=== PATIENT | male | born 1995 | race Two or more races ===

== ENCOUNTER 2021-02-05 10:28 | Emergency (ER) | payer SELFPAY ==
[~2021-02-05] VITALS: Ht 154.9 cm; Wt 63.5 kg
[2021-02-05] MEDS ORDERED: PROCHLORPERAZINE EDISYLATE 5 MG/ML 2ML VIAL IV ONE (10:45)
[2021-02-05] MEDS ORDERED: MORPHINE SULFATE 4 MG/ML SYR/VIAL IV ONE (10:45)
[2021-02-05] MEDS ORDERED: PANTOPRAZOLE 40 MG/10 ML VIAL INJ IV ONE (10:45)
[2021-02-05] MEDS ORDERED: SODIUM CHLORIDE 0.9% 500 ML IVB ONE (10:45)
[2021-02-05 11:52] LABS: Basophils # (auto) 0 10 ^3/uL (0-0.2); Basophils % (auto) 0.3 % (0.0-2.0); Eosinophils # (auto) 0.1 10 ^3/uL (0-0.8); Eosinophils % (auto) 0.7 % (0.0-7.0); Hemoglobin 16.8 g/dL (13.5-17.5); Lymphocytes # (auto) 0.9 10 ^3/uL (0.4-5.4); Lymphocytes % (auto) 9.5 % (10.0-50.0); Mean Corpuscular Hemoglobin 29.4 pg (28.0-32.0); Mean Corpuscular Hgb Conc. 34.3 g/dL (32.0-36.0); Mean Corpuscular Volume 85.8 fL (80.0-100.0); Monocytes # (auto) 0.4 10 ^3/uL (0-1.3); Neutrophils % (auto) 85.5 % (37.0-80.0); Nucleated Red Blood Cells % 0.1 %; Red Cell Distribution Width 12.3 % (11.8-14.3); White Blood Cell 9.3 10^3/uL (4.4-10.8)
[2021-02-05 12:14] LABS: Calcium 8.9 mg/dL (8.5-10.1); Potassium 3.7 mmol/L (3.5-5.1)
[2021-02-05 12:18] LABS: BUN/Creatinine Ratio 22.2; Bilirubin, Total 0.5 mg/dL (0.2-1.0); Total Protein 7.4 g/dL (6.4-8.2)
[2021-02-05 15:13] VITALS: BP 136/68
== END 2021-02-05 15:19 | disposition home or self-care (01) ==
LOC: ER 10:28 → EDBD 10:28 → ER 15:19
DX: K29.00 Acute gastritis without bleeding (principal); F12.188 Cannabis abuse with other cannabis-induced disorder; Z87.891 Personal history of nicotine dependence
CPT/HCPCS: 36415; 76705; 80053; 82150; 83690; 85025; 93005; 96361; 96374; 96375; 99285; C9113; J0780; J2270; J7030

== ENCOUNTER 2021-02-10 21:21 | Emergency (ER) | payer MEDICAID, OTHER ==
[~2021-02-10] VITALS: Ht 177.8 cm; Wt 77.1 kg
[2021-02-10 21:27] VITALS: BP 135/79
== END 2021-02-10 21:41 | disposition left against medical advice (07) ==
LOC: EDBD 21:21 → EDUNIT# 21:21 → ER 21:24
DX: R10.13 Epigastric pain (principal); R11.2 Nausea with vomiting, unspecified; Z53.21 Procedure and treatment not carried out due to patient leaving prior to being seen by health care provider

== ENCOUNTER 2021-02-13 06:34 | Emergency (ER) | payer MEDICAID ==
[~2021-02-13] VITALS: Ht 170.2 cm; Wt 74.8 kg
[2021-02-13 06:40] VITALS: BP 153/91
== END 2021-02-13 06:40 | disposition left against medical advice (07) ==
LOC: EDBD 06:34 → ER 06:34
DX: R10.9 Unspecified abdominal pain (principal); R11.0 Nausea; Z53.21 Procedure and treatment not carried out due to patient leaving prior to being seen by health care provider

== ENCOUNTER 2025-02-14 20:51 | Inpatient (IN) | payer MEDICAID ==
[~2025-02-14] VITALS: Ht 172.7 cm; Wt 68.0 kg
[2025-02-14] MEDS: LORazepam 2MG/ML-1ML VIAL ONE (21:24)
[2025-02-14] MEDS: diphenhydrAMINE HCL 50 MG/1 ML VL ONE (21:25)
[2025-02-14 21:45] VITALS: O2SAT 95
[2025-02-14] MEDS: LORazepam 2MG/ML-1ML VIAL IV ONE (21:50)
[2025-02-14] MEDS: diphenhydrAMINE HCL 50 MG/1 ML VL IV ONE (21:51)
[2025-02-14 22:39] LABS: Hematocrit 51.9 % (41.0-53.0); Hemoglobin 17.3 g/dL (13.5-17.5); Mean Corpuscular Hemoglobin 29.2 pg (28.0-32.0); Mean Corpuscular Volume 87.7 fL (80.0-100.0); Nucleated Red Blood Cells % 0.1 %
[2025-02-14 22:53] LABS: Lactic Acid w/Reflex 10.7 mmol/L (0.4-2.0)
[2025-02-14] MEDS: SODIUM CHLORIDE 0.9% 1,000 ML IV ONE ×2 (23:30)
[2025-02-15 00:05] LABS: Alanine Aminotransferase 36 U/L (7-40); Albumin 4.0 g/dL (3.2-4.8); Alkaline Phosphatase 65 U/L (46-116); Anion Gap 10 (5-15); BUN/Creatinine Ratio 14.3 (10.0-20.0); Blood Urea Nitrogen 13 mg/dL (9-23); Carbon Dioxide 22 mmol/L (20-31); Magnesium 2.4 mg/dL (1.6-2.6); Potassium 4.6 mmol/L (3.5-5.1); Sodium 141 mmol/L (136-145); Total Protein 6.4 g/dL (5.7-8.2)
[2025-02-15 00:06] LABS: Bilirubin, Total 0.4 mg/dL (0.2-1.0)
[2025-02-15 00:07] LABS: Calcium 8.6 mg/dL (8.7-10.4); Chloride 109 mmol/L (98-107); Glucose 109 mg/dL (74-106)
[2025-02-15 00:19] LABS: Creatine Kinase IFCC 1638 U/L (46-171)
--- NOTE | 2025-02-15 00:30 | ED.PDOC ---
Back pain HPI HPI Comments ashanti: Generalized body ache. After Haldol was given to him last night at a different hospital for treatment of cannabis induced hyperemesis HPI: Poor Historian. HPI: 30-year-old male who came to ER via EMS for generalized body pains. Patient was seen yesterday at [facility] due to epigastric pain, nausea and vomiting. Patient does use marijuana, so patient was treated as marijauna induced gastritis and patient was given Haldol and Tylenol. Patient then started experiencing generalized body spasms for over the next 12 hours so patient came to this ER. Patient had a rapid response in the lobby of the ER. The resident in the rapid response team ordered Ativan Benadryl prior to my evaluation. Past Medical History: Marijuana abuse Past Surgical History: Denies Social History: Smokes marijuana REVIEW OF SYSTEMS: CONSTITUTIONAL: Denies acute: fever, diaphoresis, chills, HEAD: Denies acute: headache, photophobia Eyes: Denies acute: Double vision, vision loss, eye pain, eye discharge. EARS: Denies acute: tinnitus, hearing loss, ear discharge, ear pain, THROAT: Denies acute: sore throat, swelling, difficulty swallowing , pain with swallowing, change in voice. NECK: Denies acute: neck pain, neck swelling, stiff neck. HEART: Denies acute : chest pain, palpitations, LUNGS: Denies acute: SOB, wheezing, cough, hemoptysis ABDOMEN: Denies acute: abdominal pain, Nausea, Vomiting, diarrhea, melena , hematemesis, hematochezia SKIN: Denies acute: rash, redness, lesions, itchiness. EXTREMITIES: Denies acute: calf pain, numbness, tingling, weakness, denies pain in extremity. Denies acute: Low back pain. Neuro: Denies acute: focal neurological deficit, motor or sensory focal neurological deficit, tremors, seizure like activity, confusion, dizziness, change in mental status, loss of bowel or bladder function, cauda equina like symptoms. : Denies acute: dysuria, hematuria, flank pain, increase in urinary frequency. PSYCH: Denies acute: hallucination, suicidal ideation, homicidal ideation. PHYSICAL EXAM: General: ---[id number]-----acute distress, awake and alert. Head: normocephalic, atraumatic. No raccoon's eyes, no william sign. Neck: supple, trachea is midline, no swelling. Throat: Normal phonation. Eyes:, no erythema, no purulent discharge, no proptosis, no icterus. Heart: regular rate, regular rhythm, no significant murmur appreciated. Lungs: no apparent respiratory distress, Able to speak in full sentences. No wheezing, no rhonchi, no crackles. No stridors Clear to auscultation bilaterally. Abdomen: non tender to palpation, non distended, soft, no guarding, no rebound, + bowel sounds. Neuro: Awake, Alert, oriented to name, self, situation, follows commands GCS=15. Speech is normal. Skin: no petechia, no purpura, no cyanosis, non-pale, not jaundice. Lower extremities: --no - Pitting edema no deformity, no focal swelling, no calf TTP. Makes eye contact. moves all four extremities. Face: no apparent facial droop. No nuchal rigidity, Kernig's sign, Brudzinski's sign, no meningeal signs. ED COURSE: DISCLAIMER: This medical document was created using an electronic medical record system with voice recognition software and computerized dictation system. Although this document has been carefully reviewed, there might still be some phonetic and typographical errors. Occasional wrong-word or "sound-alike" substitutions may have occurred due to the inherent limitations of voice recognition software. These areas are purely typographical due to imperfections of the software programs and do not reflect any compromise in the patient's medical care. Please read the chart carefully and recognize, using context, where these substitutions have occurred. Chief Complaint: Body Pain Time Seen by MD: 00:19 Primary Care Provider: None Reviewed Notes: Nurses Notes, Allergies Allergies: Coded Allergies: NO KNOWN ALLERGIES (Unverified , 02/05/21) Information Source: Patient Mode of Arrival: EMS Past Medical History PAST MEDICAL HISTORY: Denies Surgical History: Denies all surgeries Social History Smoker: Quit Greater Than 1 Year Drugs: Marijuana Lives In: Home Was a procedure done? Was a procedure done?: No Back Pain Differential Dx Differential Diagnosis: Musculoskeletal Pain X-Ray, Labs, Meds, VS Vital Signs Date Time Temp Pulse Resp B/P (MAP) Pulse Ox O2 Delivery O2 Flow Rate FiO2 02/14/25 20:52 99.0 95 24 154/79 100 99.0 Lab Test 02/14/25 23:15 02/14/25 22:17 02/14/25 21:20 Range/Units Sodium Level 141 136-145 mmol/L Potassium Level 4.6 3.5-5.1 mmol/L Chloride Level 109 H 98-107 mmol/L Carbon Dioxide Level 22 20-31 mmol/L Anion Gap 10 5-15 Blood Urea Nitrogen 13 9-23 mg/dL Creatinine 0.91 0.700-1.30 mg/dL Glomerular Filtration Rate Calc 115 >90 mL/min BUN/Creatinine Ratio 14.3 10.0-20.0 Serum Glucose 109 H 74-106 mg/dL Lactic Acid Level 1.0 10.7 *H 0.4-2.0 mmol/L Calcium Level 8.6 L 8.7-10.4 mg/dL Magnesium Level 2.4 1.6-2.6 mg/dL Total Bilirubin 0.4 0.2-1.0 mg/dL Aspartate Amino Transferase (AST) 43 H 13-40 U/L Alanine Aminotransferase (ALT) 36 7-40 U/L Alkaline Phosphatase 65 46-116 U/L Creatine Kinase 1638 H 46-171 U/L Total Protein 6.4 5.7-8.2 g/dL Albumin 4.0 3.2-4.8 g/dL Urine Opiates Screen Neg NEGATIVE Urine Fentanyl Screen Neg NEGATIVE Urine Barbiturates Screen Neg NEGATIVE Urine Phencyclidine Screen Neg NEGATIVE Urine Amphetamines Screen Neg NEGATIVE Urine Benzodiazepines Screen Neg NEGATIVE Urine Cocaine Screen Neg NEGATIVE Urine Cannabinoids Screen Pos NEGATIVE White Blood Count 13.2 H 4.4-10.8 10^3/uL Red Blood Count 5.92 H 4.5-5.90 10^6/uL Hemoglobin 17.3 13.5-17.5 g/dL Hematocrit 51.9 41.0-53.0 % Mean Corpuscular Volume 87.7 80.0-100.0 fL Mean Corpuscular Hemoglobin 29.2 28.0-32.0 pg Mean Corpuscular Hemoglobin Concent 33.3 32.0-36.0 g/dL Red Cell Distribution Width 14.2 11.8-14.3 % Platelet Count 253 140-450 10^3/uL Mean Platelet Volume 9.7 6.9-10.8 fL Neutrophils (%) (Auto) 83.0 H 37.0-80.0 % Lymphocytes (%) (Auto) 12.1 10.0-50.0 % Monocytes (%) (Auto) 4.5 0.0-12.0 % Eosinophils (%) (Auto) 0.1 0.0-7.0 % Basophils (%) (Auto) 0.3 0.0-2.0 % Neutrophils # (Auto) 11.0 H 1.6-8.6 10 ^3/uL Lymphocytes # (Auto) 1.6 0.4-5.4 10 ^3/uL Monocytes # (Auto) 0.6 0-1.3 10 ^3/uL Eosinophils # (Auto) 0 0-0.8 10 ^3/uL Basophils # (Auto) 0 0-0.2 10 ^3/uL Nucleated Red Blood Cells 0.1 % Current Medications Medications (Trade) Dose Ordered Sig/Linda Route Start Time Stop Time Status Last Admin Sodium Chloride 1,000 ml @ 1,000 mls/hr Q1H ONCE IV 02/14/25 23:30 02/15/25 00:29 DC 02/14/25 23:30 Sodium Chloride 1,000 ml @ 1,000 mls/hr Q1H ONCE IV 02/14/25 23:30 02/15/25 00:29 DC 02/14/25 23:30 [place] [id number] Ph: [phone] DIAGNOSTIC IMAGING Diagnostic Imaging Report : [id number] Signed PATIENT: MIMI COX ACCT: [id number] UNIT: [id number] : 1995 LOC: OVERFLOW ROOM / BED: [address] [place] [address] / A AGE / SEX: 30 / M ADM STATUS: ADM IN SERVICE 6 ORDERING PHYSICIAN: NAVNEET CALDWELL RESIDENT PROCEDURE(s): CXR1 - CHEST XRAY 1 VIEW REASON: sob ORDER NUMBER(s): [id number], ACCESSION NUMBER(s): [id number] CHEST RADIOGRAPH Indication: sob Technique: 1 view Comparison: None available FINDINGS: Lines and Tubes: External leads. Lungs/Pleura: Interstitial opacities appear within normal limits. No focal consolidation, pleural effusion or pneumothorax. Cardiomediastinum: Size within normal limits for technique. Other: No acute osseous abnormality. IMPRESSION: Prominent heart size and interstitial opacities likely within normal limits for technique. Mild heart failure or atypical infection could have a similar appearance. ATED BY: LOVE BALDWIN MD DICTATED DATE/TIME: 02/15/25238 SIGNED BY: LOVE BALDWIN MD SIGNED DATE/TIME: 02/15/25238 CC: Time of 1ST Reevaluation: 00:29 Reevaluation 1ST: Unchanged Patient Education/Counseling: Diagnosis, Treatment Family Education/Counseling: No Family Present SEPSIS Sepsis Screen Date sepsis recognized/suspect: Feb 14, 2025 Time Sepsis recognized/suspect: 2051 Recent Procedure: No On Antibiotic Therapy: No Respiratory Rate >20: No Heart Rate >90: No Temp<36 C (96.8 F) or >38.3 C: No SBP <90 or MAP <65 mmHG: No New Acute Mental Status Change: No Is the patient on CPAP, BIPAP,: No Physician Orders Chicken Boner (02/14/25 ) Vital Signs Date Time Temp Pulse Resp B/P (MAP) Pulse Ox O2 Delivery O2 Flow Rate FiO2 02/14/25 20:52 99.0 95 24 154/79 100 99.0 Laboratory Tests Test 02/14/25 21:20 02/14/25 23:15 Lactic Acid Level 10.7 mmol/L (0.4-2.0) *H 1.0 mmol/L (0.4-2.0) White Blood Count 13.2 10^3/uL (4.4-10.8) H Medications Medications Dose Ordered Sig/Linda Route Start Time Stop Time Status Last Admin Dose Admin Diphenhydramine HCl 50 mg STK-MED ONCE .ROUTE 02/14/25 21:18 02/14/25 21:17 DC 02/14/25 21:25 Lorazepam 2 mg STK-MED ONCE .ROUTE 02/14/25 21:17 02/14/25 21:17 DC 02/14/25 21:24 Sodium Chloride 1,000 ml @ 1,000 mls/hr Q1H ONCE IV 02/14/25 23:30 02/15/25 00:29 DC 02/14/25 23:30 Sodium Chloride 1,000 ml @ 1,000 mls/hr Q1H ONCE IV 02/14/25 23:30 02/15/25 00:29 DC 02/14/25 23:30 Departure 1 Departure Time of Disposition: 00:31 Impression: Primary Impression: Rhabdomyolysis Additional Impressions: Generalized body aches Elevated lactic acid level Disposition: ADMITTED INPATIENT Admit to: [facility] Condition: Guarded Discharged With: Self Critical Care Note Critical Care Time?: No I personally scribed for SURY JOHN DO ([email or web address]) on 02/15/25 at 00:30. Electronically submitted by Jack Corona ([employer]). I personally scribed for SURY JOHN DO ([email or web address]) on 02/15/25 at 00:36. Electronically submitted by Jack Corona ([employer]). I personally scribed for SURY JOHN DO ([email or web address]) on 02/15/25 at 04:34. Electronically submitted by Jack Corona ([employer]). SURY JOHN DO Feb 15, 2025 00:30
[2025-02-15] MEDS: ENOXAPARIN SOD 40 MG/0.4 ML SYRINGE SC SCH (02:15)
[2025-02-15] MEDS ORDERED: ONDANSETRON HCL 4 MG/2 ML VIAL IV PRN (02:15)
[2025-02-15 02:28] LABS: Cannabinoid Screen, Urine Pos (NEGATIVE)
[2025-02-15] MEDS: SODIUM CHLORIDE 0.9% 1,000 ML IV ONE (02:28)
--- NOTE | 2025-02-15 02:34 | DVHHPRES ---
History of Present Illness Resident Creating Document: NAVNEET CALDWELL RESIDENT History of Present Illness 30-year-old male with no significant past medical or surgical history came to the ED today with body spasms, flushing of the face and diaphoresis. Patient reports that he was at [facility] yesterday for epigastric pain, nausea and a few episodes of watery, nonbloody emesis and was treated with Haldol and Tylenol. He reports leaving the hospital but but after an hour began to have generalized body spasms, entire body muscular pain, flushing of the face, diaphoresis lasting 2-3 minutes, occurring every 10 minutes, making him unable to drive properly and to keep side tracking his car. Because of worsening of symptoms, he decided to come to the ED at this facility. On initial assessment/ rapid response patient had a tonic body spasm, observed by me lasting 2-3 minutes, facial flushing, diaphoresis, with no loss of consciousness, tongue biting or urinary incontinence for which 2g Ativan and 30 mL Benadryl was begun which helped the patient. Patient has had 3-4 more episodes of the same and during admission had 1 more episode. Patient denies any nausea, vomiting or abdominal pain during assessment. Vitals were stable on admission, lactic acid was elevated at 10.7 which has decreased to 1.0 after 2 boluses of 1 L NS 0.9% and CK is 1638. We are admitting the patient for further workup and management. PMH/PSH: none Family history: Reviewed, noncontributory to the management of this case Social history: Patient denies smoking or any alcohol abuse but admits to smoking marijuana daily PCP: Dr. Maxwell at [facility] Allergies: None other than haloperidol Code status: Full code Review of Systems Constitutional: No: Fever, Chills, Sweats, Weakness, Malaise, Other Eyes: No: Pain, Vision change, Conjunctivae inflammation, Eyelid inflammation, Other, Redness ENT: No: Ear pain, Ear discharge, Nose pain, Nose discharge, Nose congestion, Mouth pain, Mouth swelling, Throat pain, Throat swelling, Other Respiratory: No: Cough, Dry, Shortness of breath, SOB with excertion, Wheezing, Hemoptysis, Pleuritic Pain, Sputum, Wheezing, Other Cardiovascular: No: Chest Pain, Palpitations, Orthopnea, Paroxysmal Noc. Dyspnea, Edema, Lt Headedness, Other Gastrointestinal: Nausea, Vomiting; No: Abdominal Pain, Diarrhea, Constipation, Melena, Hematochezia, Other Genitourinary: No Dysuria, No Frequency, No Incontinence, No Hematuria, No Retention, No Other Musculoskeletal: No: other, neck pain, shoulder pain, arm pain, back pain, hand pain, leg pain, foot pain Skin: No: Rash, Lesions, Jaundice, Bruising, Other Neurological: Other (Body spasms); No: Weakness, Numbness, Incoordination, Change in speech, Confusion, Seizures Allergies: Coded Allergies: NO KNOWN ALLERGIES (Unverified , 02/05/21) Medications Current Medications Medications Dose Ordered Sig/Linda Route Start Time Stop Time Status Last Admin Dose Admin Ondansetron HCl 4 mg Q4HP PRN IV 02/15/25 02:15 Enoxaparin Sodium 40 mg DAILY SC 02/15/25 02:15 Lorazepam 1 mg Q2HP PRN IV 02/15/25 06:00 Pantoprazole Sodium 40 mg DAILY IV 02/15/25 10:00 Exam Vital Signs Vital Signs Date Time Temp Pulse Resp B/P (MAP) Pulse Ox O2 Delivery O2 Flow Rate FiO2 02/14/25 20:52 99.0 95 24 154/79 100 99.0 Exam Pt is lying on bed General Appearance: Alert, Oriented X3, Cooperative, distressed, flushing of the face, diaphoretic, tonic spasm of the entire body lasting 2-3 minutes occurring every 1/2 hour HEENT: Atraumatic, Mucous membranes moist/pink Respiratory: Clear to auscultation, Normal air movement, No added sounds Cardiovascular: Regular rate, Normal S1, Normal S2, No murmurs Abdominal: Active bowel sounds, Soft, no distention, no abdominal tenderness on palpation Extremities: No edema, Normal pulses, No tenderness/swelling Skin: No Significant rash, except past surgical scars Neuro: Normal speech, sensorimotor deficits none Psych/Mental Status: Mental status NL, anxious appearing Labs/Xrays Labs Test 02/14/25 23:15 02/14/25 22:17 02/14/25 21:20 Range/Units Sodium Level 141 136-145 mmol/L Potassium Level 4.6 3.5-5.1 mmol/L Chloride Level 109 H 98-107 mmol/L Carbon Dioxide Level 22 20-31 mmol/L Anion Gap 10 5-15 Blood Urea Nitrogen 13 9-23 mg/dL Creatinine 0.91 0.700-1.30 mg/dL Glomerular Filtration Rate Calc 115 >90 mL/min BUN/Creatinine Ratio 14.3 10.0-20.0 Serum Glucose 109 H 74-106 mg/dL Lactic Acid Level 1.0 0.4-2.0 mmol/L Calcium Level 8.6 L 8.7-10.4 mg/dL Magnesium Level 2.4 1.6-2.6 mg/dL Total Bilirubin 0.4 0.2-1.0 mg/dL Aspartate Amino Transferase (AST) 43 H 13-40 U/L Alanine Aminotransferase (ALT) 36 7-40 U/L Alkaline Phosphatase 65 46-116 U/L Creatine Kinase 1638 H 46-171 U/L Total Protein 6.4 5.7-8.2 g/dL Albumin 4.0 3.2-4.8 g/dL White Blood Count 13.2 H 4.4-10.8 10^3/uL Red Blood Count 5.92 H 4.5-5.90 10^6/uL Hemoglobin 17.3 13.5-17.5 g/dL Hematocrit 51.9 41.0-53.0 % Mean Corpuscular Volume 87.7 80.0-100.0 fL Mean Corpuscular Hemoglobin 29.2 28.0-32.0 pg Mean Corpuscular Hemoglobin Concent 33.3 32.0-36.0 g/dL Red Cell Distribution Width 14.2 11.8-14.3 % Platelet Count 253 140-450 10^3/uL Mean Platelet Volume 9.7 6.9-10.8 fL Neutrophils (%) (Auto) 83.0 H 37.0-80.0 % Lymphocytes (%) (Auto) 12.1 10.0-50.0 % Monocytes (%) (Auto) 4.5 0.0-12.0 % Eosinophils (%) (Auto) 0.1 0.0-7.0 % Basophils (%) (Auto) 0.3 0.0-2.0 % Neutrophils # (Auto) 11.0 H 1.6-8.6 10 ^3/uL Lymphocytes # (Auto) 1.6 0.4-5.4 10 ^3/uL Monocytes # (Auto) 0.6 0-1.3 10 ^3/uL Eosinophils # (Auto) 0 0-0.8 10 ^3/uL Basophils # (Auto) 0 0-0.2 10 ^3/uL Nucleated Red Blood Cells 0.1 % SEPSIS Sepsis Screen Date sepsis recognized/suspect: Feb 14, 2025 Time Sepsis recognized/suspect: 2051 Recent Procedure: No On Antibiotic Therapy: No Respiratory Rate >20: No Heart Rate >90: No Temp<36 C (96.8 F) or >38.3 C: No SBP <90 or MAP <65 mmHG: No New Acute Mental Status Change: No Is the patient on CPAP, BIPAP,: No Physician Orders Production Operator (02/14/25 ) Drug Screen (02/14/25 22:17) Admit (02/15/25 02:07) Code Status (02/15/25 02:07) Ondansetron Hcl (Zofran) (02/15/25 02:15) Complete Blood Count (02/15/25 04:00) Comprehensive Metabolic Panel (02/15/25 04:00) Npo (Nothing By Mouth) Diet (02/15/25 Breakfast) Condition: Unstable (02/15/25 02:07) Enoxaparin Sodium (Lovenox) (02/15/25 02:15) Electrocardigram (02/15/25 02:07) Urinalysis (02/15/25 02:07) Sodium Chloride 0.9% (02/15/25 02:15) Lorazepam 2mg/Ml Inj (Ativan Inj) (02/15/25 06:00) Creatine Kinase (02/15/25 04:00) Chest Xray 1 View (02/15/25 02:07) Pantoprazole (Protonix) (02/15/25 10:00) B-Type Natriuretic Peptide (02/15/25 04:00) Vital Signs Date Time Temp Pulse Resp B/P (MAP) Pulse Ox O2 Delivery O2 Flow Rate FiO2 02/14/25 20:52 99.0 95 24 154/79 100 99.0 Laboratory Tests Test 02/14/25 21:20 02/14/25 23:15 Lactic Acid Level 10.7 mmol/L (0.4-2.0) *H 1.0 mmol/L (0.4-2.0) White Blood Count 13.2 10^3/uL (4.4-10.8) H Medications Medications Dose Ordered Sig/Linda Route Start Time Stop Time Status Last Admin Dose Admin Diphenhydramine HCl 50 mg STK-MED ONCE .ROUTE 02/14/25 21:18 02/14/25 21:17 DC 02/14/25 21:25 50 MG Lorazepam 2 mg STK-MED ONCE .ROUTE 02/14/25 21:17 02/14/25 21:17 DC 02/14/25 21:24 2 MG Sodium Chloride 1,000 ml @ 1,000 mls/hr Q1H ONCE IV 02/14/25 23:30 02/15/25 00:29 DC 02/14/25 23:30 1,000 MLS/HR Sodium Chloride 1,000 ml @ 1,000 mls/hr Q1H ONCE IV 02/14/25 23:30 02/15/25 00:29 DC 02/14/25 23:30 1,000 MLS/HR Sodium Chloride 1,000 ml @ 1,000 mls/hr Q1H ONCE IV 02/15/25 02:15 02/15/25 03:14 02/15/25 02:28 1,000 MLS/HR Assessment/Plan Assessment/Plan # Rhabdomyolysis # Possible allergic reaction to haloperidol # Lactic acidosis - creatinine kinase 1638 - LA 10.7> 1.0 - UA - IV fluids NS 0.9% Bolus and maintenance fluid - Ativan 2 g stat ( given twice, gap of 6 hours) - Ativan 1 g Q2 PRN - Benadryl 50 mg IV once - EKG - tele monitor - BNP #Sepsis due to likely pneumonia #Possible Gram-positive/negative pneumonia - IV ceftriaxone 1g daily - blood culture - respiratory culture - chest x-ray: Prominent heart size and interstitial opacities likely within normal limits for technique. Mild heart failure or atypical infection could have a similar appearance - IV fluids NS 0.9% #Substance abuse ( marijuana) #Cyclic vomiting syndrome due to above - NPO - UDS postive for cannabinoids - Zofran 4 mg IV q.4 PRN - pantoprazole 40 mg IV daily - patient counseled regarding complete cessation of marijuana, the side effects it has in the harms it causes to his body over 8 minute GI prophylaxis: Pantoprazole 40 mg IV daily DVT prophylaxis: Lovenox 40 mg subcutaneous daily Diet: NPO Goals of care discussed with the patient for more than 27 minutes: Full code status Case discussed with Dr. Coughlin, patient and nurse. Plan discussed with: Patient, Other (rn) My Orders Orders - NAVNEET CALDWELL RESIDENT Procedure Category Date Status Time Admit ADMIT 02/15/25 Transmitted 02:07 Code Status CODE 02/15/25 Transmitted 02:07 Ondansetron Hcl PHA 02/15/25 In Process (Zofran) 02:15 Complete Blood Count LAB 02/15/25 Logged 04:00 Comprehensive LAB 02/15/25 Logged Metabolic Panel 04:00 Npo (Nothing By DIET 02/15/25 Transmitted Mouth) Diet Breakfast Condition: Unstable RADHA 02/15/25 In Process 02:07 Enoxaparin Sodium PHA 02/15/25 In Process (Lovenox) 02:15 Electrocardigram EKG 02/15/25 Logged 02:07 Urinalysis LAB 02/15/25 Logged 02:07 Sodium Chloride 0.9% PHA 02/15/25 In Process 02:15 Lorazepam 2mg/Ml Inj PHA 02/15/25 In Process (Ativan Inj) 06:00 Creatine Kinase LAB 02/15/25 Logged 04:00 Chest Xray 1 View XY 02/15/25 Taken 02:07 Pantoprazole PHA 02/15/25 In Process (Protonix) 10:00 B-Type Natriuretic LAB 02/15/25 Logged Peptide 04:00 Date of Service: Feb 15, 2025 Billing Provider: LELO COUGHLIN MD Common Visit Codes: 48630-[id number] INP/OBS CARE (HIGH) Secondary Visit Codes: 35379-[id number] CARE PLAN 30 MINUTES NAVNEET CALDWELL RESIDENT Feb 15, 2025 02:34 NARCISO HARPER RESIDENT Feb 15, 2025 06:48
--- NOTE | 2025-02-15 02:41 | DVH ---
CHEST RADIOGRAPH Indication: sob Technique: 1 view Comparison: None available FINDINGS: Lines and Tubes: External leads. Lungs/Pleura: Interstitial opacities appear within normal limits. No focal consolidation, pleural effusion or pneumothorax. Cardiomediastinum: Size within normal limits for technique. Other: No acute osseous abnormality. IMPRESSION: Prominent heart size and interstitial opacities likely within normal limits for technique. Mild heart failure or atypical infection could have a similar appearance.
[2025-02-15 02:50] LABS: Amphetamine Screen, Urine Neg (NEGATIVE); Barbiturate Scree,Urine Neg (NEGATIVE); Opiate Scree,Urine Neg (NEGATIVE); Phencyclidine Screen, Urine Neg (NEGATIVE)
[2025-02-15 02:51] LABS: Benzodiazephine Screen, Urine Neg (NEGATIVE); Cocaine Screen, Urine Neg (NEGATIVE)
[2025-02-15] MEDS: SODIUM CHLORIDE 0.9% 1,000 ML IV SCH (05:24)
[2025-02-15] MEDS: LORazepam 2MG/ML-1ML VIAL IV PRN (05:41)
[2025-02-15 06:52] LABS: Hematocrit 44.7 % (41.0-53.0); Hemoglobin 14.9 g/dL (13.5-17.5); Mean Corpuscular Hemoglobin 29.2 pg (28.0-32.0); Mean Corpuscular Volume 87.4 fL (80.0-100.0); Nucleated Red Blood Cells % 0.1 %
[2025-02-15 07:10] LABS: Alanine Aminotransferase 38 U/L (7-40); Albumin 4.0 g/dL (3.2-4.8); Alkaline Phosphatase 62 U/L (46-116); Anion Gap 10 (5-15); BUN/Creatinine Ratio 15.1 (10.0-20.0); Blood Urea Nitrogen 14 mg/dL (9-23); Carbon Dioxide 24 mmol/L (20-31); Glucose 93 mg/dL (74-106); Potassium 4.2 mmol/L (3.5-5.1); Sodium 144 mmol/L (136-145); Total Protein 6.1 g/dL (5.7-8.2)
[2025-02-15 07:11] LABS: Bilirubin, Total 0.5 mg/dL (0.2-1.0)
[2025-02-15 07:28] LABS: Calcium 8.3 mg/dL (8.7-10.4); Chloride 110 mmol/L (98-107)
[2025-02-15 08:00] VITALS: BP 127/79; PULSE 79; RESP 16; TEMP 98; O2SAT 95
[2025-02-15 09:53] LABS: Urine Protein, UAD Negative (Negative)
[2025-02-15] MEDS ORDERED: PANTOPRAZOLE 40 MG/10 ML VIAL INJ IV SCH (10:00)
== END 2025-02-15 09:53 | disposition left against medical advice (07) | DRG 720 ==
LOC: EDBD 20:51 → ER 20:51 → OVERFLOW 02-15 02:07
PROVIDERS: ATTEND Emergency Medicine
DX: A41.50 Gram-negative sepsis, unspecified (principal); M62.82 Rhabdomyolysis; J15.69 Pneumonia due to other Gram-negative bacteria; E87.20 Acidosis, unspecified; J15.9 Unspecified bacterial pneumonia; F12.10 Cannabis abuse, uncomplicated; T43.4X5A Adverse effect of butyrophenone and thiothixene neuroleptics, initial encounter; Z53.29 Procedure and treatment not carried out because of patient's decision for other reasons; Z87.891 Personal history of nicotine dependence; Y92.89 Other specified places as the place of occurrence of the external cause
CPT/HCPCS: 36415; 71045; 80053; 80307; 81001; 82550; 83605; 83735; 83880; 85025; 87040; 96361; 96372; G0378

== ENCOUNTER 2025-02-22 05:15 | Emergency (ER) | payer MEDICAID ==
[~2025-02-22] VITALS: Ht 170.2 cm; Wt 91.0 kg
--- NOTE | 2025-02-22 06:44 | ED.PDOC ---
GI ASSESSMENT HPI Comments This is a 30 year-old male who presents to the ED with a chief complaint of N/V and abdominal pain as of X2 days ago. Patient states symptoms are constant, with no known relieving factors. Patient reports having a scope done in January 2024 where "stomach inflammation" was identified. Patient additionally states he was seen by a doctor weeks ago for the same issue, prescribed Zofran, with minimal to no relief. Patient reports this being an ongoing issue for several years, with doctors unable to identify the cause of his symptoms. There are no further complaints or modifying factors at this time. Patient otherwise denies further associated symptoms of dizziness, weakness, constipation, diarrhea, fever, or hematemesis. Chief Complaint: Nausea/Vomiting Time Seen by MD: 06:37 Primary Care Provider: None Reviewed Notes: Medications, Allergies Allergies: Coded Allergies: NO KNOWN ALLERGIES (Unverified , 02/05/21) Information Source: Patient Mode of Arrival: EMS Timing: Days Duration: Since onset Severity: Moderate Associated sign and symptoms: Nausea, Vomiting, Abdominal Pain Past Medical History PAST MEDICAL HISTORY: Denies Surgical History: Denies all surgeries Social History Smoker: Quit Greater Than 1 Year Drugs: Marijuana Lives In: Home Constitutional: denies: chills, diaphoresis, fatigue, fever, malaise, sweats, weakness, others EENTM: denies: blurred vision, double vision, ear bleeding, ear discharge, ear drainage, ear pain, ear ringing, eye pain, eye redness, hearing loss, mouth pain, mouth swelling, nasal discharge, nose bleeding, nose congestion, nose pain, photophobia, tearing, throat pain, throat swelling, voice changes, others Respiratory: denies: cough, hemoptysis, orthopnea, SOB at rest, shortness of breath, SOB with excertion, stridor, wheezing, others Cardiovascular: denies: chest pain, dizzy spells, diaphoresis, Dyspnea on exertion, edema, irregular heart beat, left arm pain, lightheadedness, palpitations, PND, syncope, others Gastrointestinal: reports: abdominal pain, nausea, vomiting; denies: abdomen distended, blood streaked bowels, constipated, diarrhea, dysphagia, difficulty swallowing, hematemesis, melena, poor appetite, poor fluid intake, rectal bleeding, rectal pain, others Genitourinary: denies: burning, dysuria, flank pain, frequency, hematuria, incontinence, penile discharge, penile sore, pain, testicle pain, testicle swelling, urgency, others Neurological: denies: dizziness, fainting, headache, left sided numbness, left sided weakness, numbness, paresthesia, pre-existing deficit, right sided numbness, right sided weakness, seizure, speech problems, tingling, tremors, weakness, others Musculoskeletal: denies: back pain, gout, joint pain, joint swelling, muscle pain, muscle stiffness, neck pain, others Integumetry: denies: bruises, change in color, change in hair/nails, dryness, laceration, lesions, lumps, rash, wounds, others Allergic/Immunocompromised: denies: Difficulty Healing, Frequent Infections, Hives, Itching, others Hematologic/Lymphatic: denies: anemia, blood clots, easy bleeding, easy bruising, swollen glands, others Endocrine: denies: excessive hunger, excessive sweating, excessive thirst, excessive urination, flushing, intolerance to cold, intolerance to heat, unexplained weight gain, unexplained weight loss, others Psychiatric: denies: anxiety, bipolar disorder, depression, hopeless, panic disorder, schizophrenia, sleepless, suicidal, others All Other Systems: Reviewed and Negative Physical Exam General Appearance: No Apparent Distress HEENT: Pharynx Normal Neck: Normal Inspection Respiratory: No Respiratory Distress Cardiovascular: No Edema Breast Exam: Deferred Gastrointestinal: Non Tender Genitalia: Deferred Pelvic: Deferred Rectal: Deferred Extremities: No pedal edema Neurologic: No Motor Deficits Cerebellar Function: NOT DONE Reflexes: NOT DONE Skin: Normal Color Lymphatic: NOT DONE Was a procedure done? Was a procedure done?: No GI differential Dx Differential Diagnosis: Constipation, Gastritis/PUD, Gastroenteritis, Inflammatory BD, Dehydration, Food Poisoning, Bacterial, Parasitic, Viral X-Ray, Labs, Meds, VS Vital Signs Date Time Temp Pulse Resp B/P (MAP) Pulse Ox O2 Delivery O2 Flow Rate FiO2 02/22/25 08:45 98.5 87 16 119/75 (90) 98 98.5 02/22/25 06:33 98.7 83 22 131/75 (93) 97 98.7 02/22/25 05:15 98.9 106 24 168/110 97 98.9 Lab Test 02/22/25 07:49 02/22/25 07:44 Range/Units White Blood Count 10.3 4.4-10.8 10^3/uL Red Blood Count 5.45 4.5-5.90 10^6/uL Hemoglobin 16.0 13.5-17.5 g/dL Hematocrit 46.6 41.0-53.0 % Mean Corpuscular Volume 85.5 80.0-100.0 fL Mean Corpuscular Hemoglobin 29.4 28.0-32.0 pg Mean Corpuscular Hemoglobin Concent 34.3 32.0-36.0 g/dL Red Cell Distribution Width 13.8 11.8-14.3 % Platelet Count 218 140-450 10^3/uL Mean Platelet Volume 9.0 6.9-10.8 fL Neutrophils (%) (Auto) 84.6 H 37.0-80.0 % Lymphocytes (%) (Auto) 10.8 10.0-50.0 % Monocytes (%) (Auto) 4.2 0.0-12.0 % Eosinophils (%) (Auto) 0.1 0.0-7.0 % Basophils (%) (Auto) 0.3 0.0-2.0 % Neutrophils # (Auto) 8.7 H 1.6-8.6 10 ^3/uL Lymphocytes # (Auto) 1.1 0.4-5.4 10 ^3/uL Monocytes # (Auto) 0.4 0-1.3 10 ^3/uL Eosinophils # (Auto) 0 0-0.8 10 ^3/uL Basophils # (Auto) 0 0-0.2 10 ^3/uL Nucleated Red Blood Cells 0.2 % Sodium Level 143 136-145 mmol/L Potassium Level 3.4 L 3.5-5.1 mmol/L Chloride Level 109 H 98-107 mmol/L Carbon Dioxide Level 22 20-31 mmol/L Anion Gap 12 5-15 Blood Urea Nitrogen 18 9-23 mg/dL Creatinine 1.00 0.700-1.30 mg/dL Glomerular Filtration Rate Calc 103 >90 mL/min BUN/Creatinine Ratio 18.0 10.0-20.0 Serum Glucose 104 74-106 mg/dL Calcium Level 9.5 8.7-10.4 mg/dL Total Bilirubin 0.9 0.2-1.0 mg/dL Aspartate Amino Transferase (AST) 24 13-40 U/L Alanine Aminotransferase (ALT) 32 7-40 U/L Alkaline Phosphatase 65 46-116 U/L Total Protein 7.5 5.7-8.2 g/dL Albumin 4.6 3.2-4.8 g/dL Lipase 30 12-53 U/L Urine Color Yellow Yellow Urine Clarity Clear Clear Urine pH 6.0 5.0-9.0 Urine Specific Stokes 1.038 H 1.001-1.035 Urine Protein 1+ H Negative Urine Ketones 1+ H Negative Urine Blood Negative Negative /uL Urine Nitrite Negative Negative Urine Bilirubin Negative Negative Urine Urobilinogen Normal Negative mg/dL Urine Leukocyte Esterase Trace Negative /uL Urine RBC 2 0 - 3 /hpf Urine Microscopic WBC 4 H 0-3 /HPF Urine Squamous Epithelial Cells Few <5 /hpf Urine Bacteria None seen None Seen /hpf Urine Mucus Few None Seen Urine Glucose Normal Normal mg/dL Current Medications Medications (Trade) Dose Ordered Sig/Linda Route Start Time Stop Time Status Last Admin Sodium Chloride 1,000 ml @ 1,000 mls/hr Q1H ONCE IV 02/22/25 06:45 02/22/25 07:44 DC 02/22/25 07:12 Pantoprazole Sodium (Protonix) 40 mg ONCE ONCE IV 02/22/25 06:45 02/22/25 06:46 DC 02/22/25 07:12 Metoclopramide HCl (Reglan Injection) 10 mg ONCE ONCE IV 02/22/25 06:45 02/22/25 06:46 DC 02/22/25 07:12 Diphenhydramine HCl (Benadryl Injection) 50 mg ONCE ONCE IV 02/22/25 06:45 02/22/25 06:46 DC 02/22/25 07:12 Acetaminophen (Ofirmev) 1,000 mg ONCE ONCE IV 02/22/25 08:00 02/22/25 08:01 DC 02/22/25 08:26 Time of 1ST Reevaluation: 07:33 Reevaluation 1ST: Unchanged Patient Education/Counseling: Diagnosis, Treatment Family Education/Counseling: No Family Present SEPSIS Sepsis Screen Date sepsis recognized/suspect: Feb 22, 2025 Time Sepsis recognized/suspect: 514 Recent Procedure: No On Antibiotic Therapy: No Respiratory Rate >20: No Heart Rate >90: No Temp<36 C (96.8 F) or >38.3 C: No SBP <90 or MAP <65 mmHG: No New Acute Mental Status Change: No Is the patient on CPAP, BIPAP,: No Vital Signs Date Time Temp Pulse Resp B/P (MAP) Pulse Ox O2 Delivery O2 Flow Rate FiO2 02/22/25 08:45 98.5 87 16 119/75 (90) 98 98.5 02/22/25 06:33 98.7 83 22 131/75 (93) 97 98.7 02/22/25 05:15 98.9 106 24 168/110 97 98.9 Laboratory Tests Test 02/22/25 07:49 White Blood Count 10.3 10^3/uL (4.4-10.8) Medications Medications Dose Ordered Sig/Linda Route Start Time Stop Time Status Last Admin Dose Admin Acetaminophen 1,000 mg ONCE ONCE IV 02/22/25 08:00 02/22/25 08:01 DC 02/22/25 08:26 Diphenhydramine HCl 50 mg ONCE ONCE IV 02/22/25 06:45 02/22/25 06:46 DC 02/22/25 07:12 Metoclopramide HCl 10 mg ONCE ONCE IV 02/22/25 06:45 02/22/25 06:46 DC 02/22/25 07:12 Pantoprazole Sodium 40 mg ONCE ONCE IV 02/22/25 06:45 02/22/25 06:46 DC 02/22/25 07:12 Sodium Chloride 1,000 ml @ 1,000 mls/hr Q1H ONCE IV 02/22/25 06:45 02/22/25 07:44 DC 02/22/25 07:12 Departure 1 Departure Time of Disposition: 09:28 (Patient well known to the ER presents with chronic findings. Patient requesting opiate medication. When patient was not going to receive opiate medication decided to leave.) Impression: Primary Impression: Abdominal pain Additional Impression: Drug-seeking behavior Disposition: LEFT AGAINST MEDICAL ADVICE Condition: Stable Critical Care Note Critical Care Time?: No Stability Stability form required: No Heart Score Heart Score: Heart Score Response (Comments) Value History N/A 0 EKG N/A 0 Age N/A 0 Risk Factors N/A 0 Troponin N/A 0 Total 0 I personally scribed for BRYAN GEE MD ([email or web address]) on 02/22/25 at 06:44. Electronically submitted by Karina Mojica ([email or web address]). I personally scribed for BRYAN GEE MD ([facility]) on 02/22/25 at 06:45. Electronically submitted by Karina Mojica ([email or web address]). I personally scribed for BRYAN GEE MD ([facility]) on 02/22/25 at 06:49. Electronically submitted by Karina Mojica ([email or web address]). I personally scribed for BRYAN GEE MD ([facility]) on 02/22/25 at 06:56. Electronically submitted by Karina Mojica ([email or web address]). BRYAN GEE MD Feb 22, 2025 06:44
[2025-02-22] MEDS ORDERED: PANTOPRAZOLE 40 MG/10 ML VIAL INJ IV ONE (07:10)
[2025-02-22] MEDS ORDERED: diphenhydrAMINE HCL 50 MG/1 ML VL ONE (07:10)
[2025-02-22] MEDS ORDERED: METOCLOPRAMIDE HCL 5MG/ml INJ 2ml VIAL ONE (07:11)
[2025-02-22] MEDS: SODIUM CHLORIDE 0.9% 1,000 ML IV ONE (07:12)
[2025-02-22] MEDS: PANTOPRAZOLE 40 MG/10 ML VIAL INJ IV ONE (07:12)
[2025-02-22] MEDS: diphenhydrAMINE HCL 50 MG/1 ML VL IV ONE (07:12)
[2025-02-22] MEDS: METOCLOPRAMIDE HCL 5MG/ml INJ 2ml VIAL IV ONE (07:12)
[2025-02-22] MEDS ORDERED: ACETAMINOPHEN IV 100 ML IV ONE (08:22)
[2025-02-22] MEDS: ACETAMINOPHEN IV 1000 MG/100ML (10MG/ML) IV ONE (08:26)
[2025-02-22 08:35] LABS: Hematocrit 46.6 % (41.0-53.0); Hemoglobin 16.0 g/dL (13.5-17.5); Mean Corpuscular Hemoglobin 29.4 pg (28.0-32.0); Mean Corpuscular Volume 85.5 fL (80.0-100.0); Nucleated Red Blood Cells % 0.2 %
[2025-02-22 08:45] VITALS: BP 119/75; PULSE 87; RESP 16; TEMP 98.5; O2SAT 98
[2025-02-22 08:45] LABS: Urine Protein, UAD 1+ (Negative)
[2025-02-22 08:48] LABS: Alanine Aminotransferase 32 U/L (7-40); Albumin 4.6 g/dL (3.2-4.8); Alkaline Phosphatase 65 U/L (46-116); Anion Gap 12 (5-15); BUN/Creatinine Ratio 18.0 (10.0-20.0); Bilirubin, Total 0.9 mg/dL (0.2-1.0); Blood Urea Nitrogen 18 mg/dL (9-23); Calcium 9.5 mg/dL (8.7-10.4); Carbon Dioxide 22 mmol/L (20-31); Glucose 104 mg/dL (74-106); Lipase 30 U/L (12-53); Sodium 143 mmol/L (136-145); Total Protein 7.5 g/dL (5.7-8.2)
[2025-02-22 08:52] LABS: Chloride 109 mmol/L (98-107); Potassium 3.4 mmol/L (3.5-5.1)
== END 2025-02-22 09:20 | disposition left against medical advice (07) ==
LOC: EDBD 05:15 → ER 05:15
DX: R10.9 Unspecified abdominal pain (principal); F19.10 Other psychoactive substance abuse, uncomplicated; R11.2 Nausea with vomiting, unspecified
CPT/HCPCS: 36415; 80053; 81001; 83690; 85025; 96361; 96374; 96375; 99284; J1200; J2470; J2765; J7030; J0131

== ENCOUNTER 2025-03-03 14:39 | Emergency (ER) | payer MEDICAID ==
[~2025-03-03] VITALS: Ht 170.2 cm; Wt 87.9 kg
[2025-03-03 14:41] VITALS: BP 136/93; PULSE 96; RESP 20; TEMP 97.5; O2SAT 95
[2025-03-03] MEDS ORDERED: LORazepam 0.5 MG TAB PO ONE (15:00)
--- NOTE | 2025-03-03 15:01 | ED.PDOC ---
History of Present Illness HPI Comments 30-year-old male came to the ER stating that he has been having shortness a breath for the past 10 days. He was admitted at [facility] recently discharged. Patient states that he is still short of breath even though he was discharged from [facility]. He denies asthma COPD. Denies any other past medical surgical history. Chief Complaint: Shortness of Breath Time Seen by MD: 14:42 Primary Care Provider: None Reviewed Notes: Nurses Notes, Medications, Allergies Allergies: Coded Allergies: Haloperidol (Verified Allergy, Unknown, 03/03/25) Ketorolac Tromethamine (Verified Allergy, Unknown, 03/03/25) Information Source: Patient Mode of Arrival: Ambulatory Severity: Moderate Timing: Days Duration: Since onset Past Medical History PAST MEDICAL HISTORY: Denies Surgical History: Denies all surgeries Social History Smoker: Quit Greater Than 1 Year Alcohol: Denies ETOH Use Drugs: Marijuana Lives In: Home Constitutional: denies: chills, diaphoresis, fatigue, fever, malaise, sweats, weakness, others EENTM: denies: blurred vision, double vision, ear bleeding, ear discharge, ear drainage, ear pain, ear ringing, eye pain, eye redness, hearing loss, mouth pain, mouth swelling, nasal discharge, nose bleeding, nose congestion, nose pain, photophobia, tearing, throat pain, throat swelling, voice changes, others Respiratory: reports: shortness of breath; denies: cough, hemoptysis, orthopnea, SOB at rest, SOB with excertion, stridor, wheezing, others Cardiovascular: denies: chest pain, dizzy spells, diaphoresis, Dyspnea on exertion, edema, irregular heart beat, left arm pain, lightheadedness, palpitations, PND, syncope, others Gastrointestinal: denies: abdomen distended, abdominal pain, blood streaked bowels, constipated, diarrhea, dysphagia, difficulty swallowing, hematemesis, melena, nausea, poor appetite, poor fluid intake, rectal bleeding, rectal pain, vomiting, others Genitourinary: denies: burning, dysuria, flank pain, frequency, hematuria, incontinence, penile discharge, penile sore, pain, testicle pain, testicle swelling, urgency, others Neurological: denies: dizziness, fainting, headache, left sided numbness, left sided weakness, numbness, paresthesia, pre-existing deficit, right sided numbness, right sided weakness, seizure, speech problems, tingling, tremors, weakness, others Musculoskeletal: denies: back pain, gout, joint pain, joint swelling, muscle pain, muscle stiffness, neck pain, others Integumetry: denies: bruises, change in color, change in hair/nails, dryness, laceration, lesions, lumps, rash, wounds, others Allergic/Immunocompromised: denies: Difficulty Healing, Frequent Infections, Hives, Itching, others Hematologic/Lymphatic: denies: anemia, blood clots, easy bleeding, easy bruising, swollen glands, others Endocrine: denies: excessive hunger, excessive sweating, excessive thirst, excessive urination, flushing, intolerance to cold, intolerance to heat, unexplained weight gain, unexplained weight loss, others Psychiatric: denies: anxiety, bipolar disorder, depression, hopeless, panic disorder, schizophrenia, sleepless, suicidal, others Physical Exam General Appearance: Moderate Distress HEENT: Normal ENT Inspection, Pharynx Normal, TMs Normal Neck: Full Range of Motion, Non-Tender, Normal, Normal Inspection Respiratory: Chest Non-Tender, Lungs Clear, No Accessory Muscle Use, No Respiratory Distress, Normal Breath Sounds Cardiovascular: No Edema, No JVD, No Murmur, No Gallop, Normal Peripheral Pulses, Regular Rate/Rhythm Breast Exam: Deferred Gastrointestinal: No Organomegaly, Non Tender, No Pulsatile Mass, Normal Bowel Sounds, Soft Genitalia: Deferred Pelvic: Deferred Rectal: Deferred Extremities: No calf tenderness, Normal capillary refill, Normal inspection, Normal range of motion, Non-tender, No pedal edema Musculoskeletal : Apperance: Normal Neurologic: Alert, 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 Was a procedure done?: No Differential Dx Considerations may include: Pneumonitis X-Ray, Labs, Meds, VS Vital Signs Date Time Temp Pulse Resp B/P (MAP) Pulse Ox O2 Delivery O2 Flow Rate FiO2 03/03/25 14:41 97.5 96 20 136/93 95 97.5 Patient alert. Complaining of shortness a breath. Vitals stable. Answering questions. Possible pneumonitis. Was given Solu-Medrol. Explained to the patient. Continue monitoring. Time of 1ST Reevaluation: 15:00 Reevaluation 1ST: Unchanged Patient Education/Counseling: Diagnosis, Treatment, Prognosis Family Education/Counseling: No Family Present SEPSIS Sepsis Screen Date sepsis recognized/suspect: Mar 03, 2025 Time Sepsis recognized/suspect: 1440 Recent Procedure: No On Antibiotic Therapy: No Respiratory Rate >20: No Heart Rate >90: No Temp<36 C (96.8 F) or >38.3 C: No SBP <90 or MAP <65 mmHG: No New Acute Mental Status Change: No Is the patient on CPAP, BIPAP,: No Physician Orders Complete Blood Count (03/03/25 14:57) D-Dimer (03/03/25 14:57) Chest Portable (03/03/25 14:57) Basic Metabolic Panel (03/03/25 14:57) Lorazepam Tablet (Ativan Tablet) (03/03/25 15:00) Vital Signs Date Time Temp Pulse Resp B/P (MAP) Pulse Ox O2 Delivery O2 Flow Rate FiO2 03/03/25 14:41 97.5 96 20 136/93 95 97.5 Departure 1 Departure Time of Disposition: 15:01 Impression: Primary Impression: Pneumonitis Disposition: 09 ADMITTED INPATIENT Admit to: Med Surg Condition: Guarded Critical Care Note Critical Care Time?: No Stability Stability form required: No Heart Score Heart Score: Heart Score Response (Comments) Value History N/A 0 EKG N/A 0 Age N/A 0 Risk Factors N/A 0 Troponin N/A 0 Total 0 LEIGH ANN VELEZ MD Mar 03, 2025 15:01
--- NOTE | 2025-03-03 15:31 | DVH ---
CHEST RADIOGRAPH Indication: sob Technique: XY CHEST PORTABLE Comparison: None FINDINGS: The cardiac silhouette is unremarkable. The lungs demonstrate right lower lobe airspace opacification.. The pulmonary vasculature is unremarkable. There is no pleural effusion. There is no pneumothorax. IMPRESSION: Right lower lobe airspace opacification.
[2025-03-03 15:44] LABS: Hematocrit 46.2 % (41.0-53.0); Hemoglobin 16.1 g/dL (13.5-17.5); Mean Corpuscular Hemoglobin 28.9 pg (28.0-32.0); Mean Corpuscular Volume 82.8 fL (80.0-100.0); Nucleated Red Blood Cells % 0.1 %
[2025-03-03 15:53] LABS: Chloride 104 mmol/L (98-107); Potassium 3.6 mmol/L (3.5-5.1); Sodium 138 mmol/L (136-145)
[2025-03-03 15:54] LABS: Anion Gap 13 (5-15); Calcium 9.7 mg/dL (8.7-10.4); Carbon Dioxide 21 mmol/L (20-31)
[2025-03-03 15:59] LABS: BUN/Creatinine Ratio 19.8 (10.0-20.0); Blood Urea Nitrogen 16 mg/dL (9-23)
[2025-03-03 16:01] LABS: Glucose 117 mg/dL (74-106)
== END 2025-03-03 19:16 | disposition left against medical advice (07) ==
LOC: ER 14:39
DX: J18.9 Pneumonia, unspecified organism (principal)
CPT/HCPCS: 36415; 71045; 80048; 85025; 85379

== ENCOUNTER 2025-03-25 05:07 | Emergency (ER) | payer MEDICAID ==
[~2025-03-25] VITALS: Ht 167.6 cm; Wt 82.0 kg
[2025-03-25 05:15] VITALS: BP 130/93; PULSE 94; RESP 20; TEMP 97.9; O2SAT 99
== END 2025-03-25 07:20 | disposition left against medical advice (07) ==
LOC: EDBD 05:07 → ER 05:07
DX: R10.9 Unspecified abdominal pain (principal); Z79.899 Other long term (current) drug therapy

== ENCOUNTER 2025-03-30 16:29 | Emergency (ER) | payer MEDICAID ==
[~2025-03-30] VITALS: Ht 177.8 cm; Wt 90.9 kg
[2025-03-30 16:46] VITALS: BP 159/106; PULSE 101; RESP 20; TEMP 97.6; O2SAT 100
--- NOTE | 2025-03-30 16:55 | ED.PDOC ---
GI ASSESSMENT HPI Comments 30 y/o M, CARIDAD, presents to the ED for CC of abdominal pain. EMS reports, patient is coming from home where he c/o epigastric abdominal pain x4days. Patient states, he was seen at [facility] for SS x4days prior and was Dx with gastritis, patient was then DC today (03/30/25). Patient relays, that symptoms have persisted despite taking over the counter medication. Patient comments, taking Zofran, Peptonics, and Pepto Bismol with no relief or change in symptoms. Patient denies nausea, vomiting, or diarrhea. No other symptoms or modifying factors are present at this time. Chief Complaint: Abdominal Pain Time Seen by MD: 16:50 Primary Care Provider: None Reviewed Notes: Nurses Notes, Medications, Allergies Allergies: Coded Allergies: Haloperidol (Verified Allergy, Unknown, 03/03/25) Ketorolac Tromethamine (Verified Allergy, Unknown, 03/03/25) Information Source: Patient, Emergency Med Personnel Mode of Arrival: EMS Timing: Days Duration: Since onset Prehospital treatment: None Vomitus: None Stool: Normal Severity: Moderate Recent: None Recent Hx of: None Pain Location: Epigastric Modifying Factors: Nothing Associated sign and symptoms: Abdominal Pain Past Medical History PAST MEDICAL HISTORY: Denies Surgical History: Denies all surgeries Social History Smoker: Quit Greater Than 1 Year Alcohol: Denies ETOH Use Drugs: Marijuana Lives In: Home Constitutional: denies: chills, diaphoresis, fatigue, fever, malaise, sweats, weakness, others EENTM: denies: blurred vision, double vision, ear bleeding, ear discharge, ear drainage, ear pain, ear ringing, eye pain, eye redness, hearing loss, mouth pain, mouth swelling, nasal discharge, nose bleeding, nose congestion, nose pain, photophobia, tearing, throat pain, throat swelling, voice changes, others Respiratory: denies: cough, hemoptysis, orthopnea, SOB at rest, shortness of breath, SOB with excertion, stridor, wheezing, others Cardiovascular: denies: chest pain, dizzy spells, diaphoresis, Dyspnea on exertion, edema, irregular heart beat, left arm pain, lightheadedness, palpitations, PND, syncope, others Gastrointestinal: reports: abdominal pain; denies: abdomen distended, blood streaked bowels, constipated, diarrhea, dysphagia, difficulty swallowing, hematemesis, melena, nausea, poor appetite, poor fluid intake, rectal bleeding, rectal pain, vomiting, others Genitourinary: denies: burning, dysuria, flank pain, frequency, hematuria, incontinence, penile discharge, penile sore, pain, testicle pain, testicle swelling, urgency, others Neurological: denies: dizziness, fainting, headache, left sided numbness, left sided weakness, numbness, paresthesia, pre-existing deficit, right sided numbness, right sided weakness, seizure, speech problems, tingling, tremors, weakness, others Musculoskeletal: denies: back pain, gout, joint pain, joint swelling, muscle pain, muscle stiffness, neck pain, others Integumetry: denies: bruises, change in color, change in hair/nails, dryness, laceration, lesions, lumps, rash, wounds, others Allergic/Immunocompromised: denies: Difficulty Healing, Frequent Infections, Hives, Itching, others Hematologic/Lymphatic: denies: anemia, blood clots, easy bleeding, easy bruising, swollen glands, others Endocrine: denies: excessive hunger, excessive sweating, excessive thirst, excessive urination, flushing, intolerance to cold, intolerance to heat, unexplained weight gain, unexplained weight loss, others Psychiatric: denies: anxiety, bipolar disorder, depression, hopeless, panic disorder, schizophrenia, sleepless, suicidal, others All Other Systems: Reviewed and Negative Physical Exam General Appearance: Moderate Distress HEENT: Normal ENT Inspection, Pharynx Normal, TMs Normal Neck: Full Range of Motion, Non-Tender, Normal, Normal Inspection Respiratory: Chest Non-Tender, Lungs Clear, No Accessory Muscle Use, No Re spiratory Distress, Normal Breath Sounds Cardiovascular: No Edema, No JVD, No Murmur, No Gallop, Normal Peripheral Pulses, Regular Rate/Rhythm Breast Exam: Deferred Gastrointestinal: No Organomegaly, Non Tender, No Pulsatile Mass, Normal Bowel Sounds, Soft Genitalia: Deferred Pelvic: Deferred Rectal: Deferred Extremities: No calf tenderness, Normal capillary refill, Normal inspection, Normal range of motion, Non-tender, No pedal edema Musculoskeletal : Apperance: Normal Neurologic: Alert, 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 Was a procedure done?: No GI differential Dx Differential Diagnosis: Constipation, Diverticular disease, Esophagitis, Gastritis/PUD, Gastroenteritis, Bacterial, Viral X-Ray, Labs, Meds, VS Vital Signs Date Time Temp Pulse Resp B/P (MAP) Pulse Ox O2 Delivery O2 Flow Rate FiO2 03/30/25 16:46 97.6 101 20 159/106 100 97.6 Lab Test 03/30/25 16:58 Range/Units White Blood Count 7.2 4.4-10.8 10^3/uL Red Blood Count 5.95 H 4.5-5.90 10^6/uL Hemoglobin 17.3 13.5-17.5 g/dL Hematocrit 50.5 41.0-53.0 % Mean Corpuscular Volume 84.8 80.0-100.0 fL Mean Corpuscular Hemoglobin 29.0 28.0-32.0 pg Mean Corpuscular Hemoglobin Concent 34.2 32.0-36.0 g/dL Red Cell Distribution Width 13.4 11.8-14.3 % Platelet Count 218 140-450 10^3/uL Mean Platelet Volume 8.5 6.9-10.8 fL Neutrophils (%) (Auto) 61.2 37.0-80.0 % Lymphocytes (%) (Auto) 29.7 10.0-50.0 % Monocytes (%) (Auto) 8.1 0.0-12.0 % Eosinophils (%) (Auto) 0.6 0.0-7.0 % Basophils (%) (Auto) 0.4 0.0-2.0 % Neutrophils # (Auto) 4.4 1.6-8.6 10 ^3/uL Lymphocytes # (Auto) 2.1 0.4-5.4 10 ^3/uL Monocytes # (Auto) 0.6 0-1.3 10 ^3/uL Eosinophils # (Auto) 0 0-0.8 10 ^3/uL Basophils # (Auto) 0 0-0.2 10 ^3/uL Nucleated Red Blood Cells 0.1 % Sodium Level 137 136-145 mmol/L Potassium Level 3.8 3.5-5.1 mmol/L Chloride Level 105 98-107 mmol/L Carbon Dioxide Level 17 L 20-31 mmol/L Anion Gap 15 5-15 Blood Urea Nitrogen 13 9-23 mg/dL Creatinine 1.14 0.700-1.30 mg/dL Glomerular Filtration Rate Calc 88 >90 mL/min BUN/Creatinine Ratio 11.4 10.0-20.0 Serum Glucose 103 74-106 mg/dL Calcium Level 9.9 8.7-10.4 mg/dL Patient alert. Came in because of abdominal discomfort. Vitals stable. Answering questions. WBC within normal limits. Blood pressure elevated. Saturation pristine on room air. Continue monitoring. Time of 1ST Reevaluation: 17:20 Reevaluation 1ST: Unchanged Patient Education/Counseling: Diagnosis, Treatment Family Education/Counseling: No Family Present SEPSIS Sepsis Screen Physician Orders Urinalysis (03/30/25 16:50) Sodium Chloride 0.9% (03/30/25 17:00) Ct Ab Pel Wo Con-No Oral Or Iv (03/30/25 16:50) Drug Screen (03/30/25 16:50) Vital Signs Date Time Temp Pulse Resp B/P (MAP) Pulse Ox O2 Delivery O2 Flow Rate FiO2 03/30/25 16:46 97.6 101 20 159/106 100 97.6 Laboratory Tests Test 03/30/25 16:58 White Blood Count 7.2 10^3/uL (4.4-10.8) Departure 1 Departure Time of Disposition: 17:42 Impression: Primary Impression: Hypertensive urgency Disposition: 30 STILL A PATIENT Condition: Good Critical Care Note Critical Care Time?: No Stability Stability form required: No Heart Score Heart Score: Heart Score Response (Comments) Value History N/A 0 EKG N/A 0 Age N/A 0 Risk Factors N/A 0 Troponin N/A 0 Total 0 I personally scribed for LEIGH ANN VELEZ MD ([email or web address]) on 03/30/25 at 16:55. Electronically submitted by Malathi Ashraf ([email or web address]). LEIGH ANN VELEZ MD Mar 30, 2025 16:55
[2025-03-30] MEDS ORDERED: ONDANSETRON HCL 4 MG/2 ML VIAL IV ONE (17:00)
[2025-03-30] MEDS ORDERED: SODIUM CHLORIDE 0.9% 1,000 ML IVB ONE (17:00)
[2025-03-30] MEDS ORDERED: MORPHINE SULFATE 4 MG/ML SYR/VIAL IV ONE (17:00)
[2025-03-30 17:08] LABS: Hematocrit 50.5 % (41.0-53.0); Hemoglobin 17.3 g/dL (13.5-17.5); Mean Corpuscular Hemoglobin 29.0 pg (28.0-32.0); Mean Corpuscular Volume 84.8 fL (80.0-100.0); Nucleated Red Blood Cells % 0.1 %
[2025-03-30 17:10] LABS: Chloride 105 mmol/L (98-107); Potassium 3.8 mmol/L (3.5-5.1); Sodium 137 mmol/L (136-145)
[2025-03-30 17:11] LABS: Anion Gap 15 (5-15)
[2025-03-30 17:12] LABS: Calcium 9.9 mg/dL (8.7-10.4)
[2025-03-30 17:16] LABS: Carbon Dioxide 17 mmol/L (20-31); Glucose 103 mg/dL (74-106)
[2025-03-30 17:17] LABS: BUN/Creatinine Ratio 11.4 (10.0-20.0); Blood Urea Nitrogen 13 mg/dL (9-23)
== END 2025-03-30 17:20 | disposition left against medical advice (07) ==
LOC: EDBD 16:29 → ER 16:29
DX: I16.0 Hypertensive urgency (principal); Z79.899 Other long term (current) drug therapy
CPT/HCPCS: 36415; 80048; 85025